=== PATIENT | female | born 1965 | race African-American/Black ===

== ENCOUNTER 2019-09-17 22:37 | Emergency (ER) | payer MEDICARE, MEDICAID ==
[~2019-09-17] VITALS: Ht 165.1 cm; Wt 126.0 kg
[2019-09-18] MEDS ORDERED: KETOROLAC 30MG/ML VIAL IV STA (00:47)
[2019-09-18] MEDS ORDERED: ONDANSETRON HCL 4MG/2ML INJ IV STA (00:47)
[2019-09-18] MEDS ORDERED: SODIUM CHLORIDE 0.9% 1,000 ML IV ONE (00:47)
[2019-09-18] MEDS ORDERED: MORPHINE SULFATE 4 MG/ML CPJ (NOT FOR IM USE) IV STA (00:47)
[2019-09-18] MEDS ORDERED: PIPERACILLIN/TAZ 3.375G PREMIX 50 ML IV ONE (01:00)
[2019-09-18] MEDS ORDERED: METRONIDAZOLE 500 MG PREMIX 100 ML IV ONE (01:00)
[2019-09-18 02:21] LABS: CHLORIDE 102 mEq/L (98-107)
[2019-09-18 02:25] LABS: ETHANOL BLOOD < 10 mg/dL; INR 0.9; PARTIAL THROMBOPLASTIN TIME 23.3 sec (23.4-31.0); PROTHROMBIN TIME 10.2 sec (9.6-11.0)
[2019-09-18 02:26] LABS: CLARITY URINE CLEAR (CLEAR); COLOR URINE YELLOW (YELLOW); KETONES URINE TRACE (NEGATIVE); LEUKOCYTE ESTERASE URINE NEGATIVE (NEGATIVE); NITRITE URINE NEGATIVE (NEGATIVE); OCCULT BLOOD URINE NEGATIVE (NEGATIVE); PROTEIN URINE NEGATIVE (NEGATIVE); SPECIFIC GRAVITY URINE 1.027 (1.005-1.030); UROBILINOGEN URINE 0.2 E.U./dL (0.2-1.0)
[2019-09-18 02:51] LABS: *BARBITURATES SCREEN URINE NEGATIVE (NEGATIVE); *BENZODIAZEPINES SCREEN URINE NEGATIVE (NEGATIVE); *COCAINE SCREEN URINE NEGATIVE (NEGATIVE)
[2019-09-18 02:52] LABS: *AMPHETAMINES SCREEN URINE NEGATIVE (NEGATIVE); CANNABINOID URINE SCREEN NEGATIVE (NEGATIVE); METHADONE URINE SCREEN NEGATIVE (NEGATIVE); OPIATES URINE SCREEN NEGATIVE (NEGATIVE); PHENCYCLIDINE URINE SCREEN NEGATIVE (NEGATIVE)
[2019-09-18 03:42] LABS: EOSINOPHILS % 1.9 % (0.0-5.0); HEMATOCRIT. 43.2 % (36.0-48.0); HEMOGLOBIN. 14.5 g/dL (12.0-16.0); LYMPHOCYTES % 28.3 % (20.0-50.0); MEAN CORPUSCULAR HEMOGLOBIN 29.3 pg (28.0-32.0); MEAN CORPUSCULAR VOLUME 87.3 fL (81.0-99.0); MEAN PLATELET VOLUME 8.5 fl (7.4-10.4); MONOCYTES % 9.6 % (2.0-8.0); NEUTROPHILS % 59.2 % (40.0-76.0); PLATELET 192 x1000/uL (130-400); RED BLOOD CELL COUNT 4.94 mill/uL (4.2-5.4); RED CELL DISTRIBUTION WIDTH 15.8 % (11.6-14.6)
[2019-09-18] MEDS ORDERED: MORPHINE SULFATE 4 MG/ML CPJ (NOT FOR IM USE) IV ONE (06:45)
[2019-09-18] MEDS ORDERED: ONDANSETRON HCL 4MG/2ML INJ IV ONE (06:45)
[2019-09-18 08:07] VITALS: BP 126/56
== END 2019-09-18 08:30 ==
LOC: ER 22:37 → EDBEDREQ 09-18 06:22 → EDBEDREQSVC 09-18 06:22 → EDBEDREQTM 09-18 06:22 → ENRESERV 09-18 08:05 → CANRESERV 09-18 08:05 → CANBEDREQ 09-18 08:17 → ER 09-18 08:30
DX: R10.32 Left lower quadrant pain (principal); R19.7 Diarrhea, unspecified; E11.9 Type 2 diabetes mellitus without complications; Z87.19 Personal history of other diseases of the digestive system
CPT/HCPCS: 36415; 71045; 74176; 80053; 80305; 80320; 81003; 83605; 83690; 83880; 84484; 85025; 85610; 85730; 87040; 87086; 96365; 96366; 96368; 96375; 96376; 99285; J1885; J2270; J2405; J2543; J3490; J7030; G0480

== ENCOUNTER 2019-12-01 17:37 | Emergency (ER) | payer OTHER, MEDICARE ==
[~2019-12-01] VITALS: Ht 167.6 cm; Wt 125.0 kg
[2019-12-01] MEDS ORDERED: MORPHINE SULFATE 4 MG/ML CPJ (NOT FOR IM USE) IV STA (18:04)
[2019-12-01] MEDS ORDERED: ONDANSETRON HCL 4MG/2ML INJ IV STA (18:04)
[2019-12-01] MEDS ORDERED: SODIUM CHLORIDE 0.9% 1,000 ML IV ONE (18:04)
[2019-12-01 18:46] LABS: CLARITY URINE CLEAR (CLEAR); COLOR URINE YELLOW (YELLOW); KETONES URINE NEGATIVE (NEGATIVE); LEUKOCYTE ESTERASE URINE NEGATIVE (NEGATIVE); NITRITE URINE NEGATIVE (NEGATIVE); OCCULT BLOOD URINE NEGATIVE (NEGATIVE); PROTEIN URINE NEGATIVE (NEGATIVE); SPECIFIC GRAVITY URINE 1.023 (1.005-1.030); UROBILINOGEN URINE 0.2 E.U./dL (0.2-1.0)
[2019-12-01 19:30] LABS: BASOPHILS % 0.9 % (0.0-2.0); EOSINOPHILS % 1.8 % (0.0-5.0); HEMATOCRIT. 43.1 % (36.0-48.0); HEMOGLOBIN. 14.4 g/dL (12.0-16.0); LYMPHOCYTES % 29.6 % (20.0-50.0); MEAN CORPUSCULAR HEMOGLOBIN 29.2 pg (28.0-32.0); MEAN CORPUSCULAR VOLUME 87.2 fL (81.0-99.0); MEAN PLATELET VOLUME 7.9 fl (7.4-10.4); MONOCYTES % 9.6 % (2.0-8.0); NEUTROPHILS % 58.1 % (40.0-76.0); PLATELET 204 x1000/uL (130-400); RED BLOOD CELL COUNT 4.94 mill/uL (4.2-5.4); RED CELL DISTRIBUTION WIDTH 15.6 % (11.6-14.6)
[2019-12-01 19:35] LABS: CHLORIDE 105 mEq/L (98-107)
[2019-12-01 19:39] LABS: INR 0.9; PROTHROMBIN TIME 10.1 sec (9.6-11.0)
[2019-12-01 21:29] VITALS: BP 130/70
== END 2019-12-01 21:30 | disposition home or self-care (01) ==
LOC: ER 17:37
DX: R10.32 Left lower quadrant pain (principal); R03.0 Elevated blood-pressure reading, without diagnosis of hypertension; E11.9 Type 2 diabetes mellitus without complications; K57.90 Diverticulosis of intestine, part unspecified, without perforation or abscess without bleeding; E03.9 Hypothyroidism, unspecified; E78.5 Hyperlipidemia, unspecified
CPT/HCPCS: 36415; 74176; 80053; 81003; 83690; 85025; 85610; 96374; 96375; 99284; J2270; J2405; J7030

== ENCOUNTER 2020-06-05 16:07 | Emergency (ER) | payer MEDICARE, MEDICAID ==
[~2020-06-05] VITALS: Ht 165.1 cm; Wt 137.0 kg
[2020-06-05 18:41] LABS: BASOPHILS % 0.7 % (0.0-2.0); EOSINOPHILS % 1.7 % (0.0-5.0); HEMATOCRIT. 42.1 % (36.0-48.0); HEMOGLOBIN. 13.6 g/dL (12.0-16.0); LYMPHOCYTES % 30.5 % (20.0-50.0); MEAN CORPUSCULAR HEMOGLOBIN 28.5 pg (28.0-32.0); MEAN CORPUSCULAR VOLUME 88.3 fL (81.0-99.0); MEAN PLATELET VOLUME 8.4 fl (7.4-10.4); MONOCYTES % 8.7 % (2.0-8.0); NEUTROPHILS % 58.4 % (40.0-76.0); PLATELET 188 x1000/uL (130-400); RED BLOOD CELL COUNT 4.77 mill/uL (4.2-5.4); RED CELL DISTRIBUTION WIDTH 14.8 % (11.6-14.6)
[2020-06-05 18:47] LABS: CHLORIDE 104 mEq/L (98-107)
[2020-06-05] MEDS ORDERED: HYDROCODONE/ACETAMINOPHEN 5/325MG TABLET PO ONE (19:00)
[2020-06-05] MEDS ORDERED: KETOROLAC 15MG/ML VIAL IV ONE (21:00)
[2020-06-05 21:05] VITALS: BP 125/78
[2020-06-05] MEDS ORDERED: IOHEXOL-300 100 ML BOTTLE ONE (21:06)
== END 2020-06-05 21:10 | disposition home or self-care (01) ==
LOC: ER 16:07
DX: R06.00 Dyspnea, unspecified (principal); M79.604 Pain in right leg; M79.605 Pain in left leg; M54.89 Other dorsalgia; I10 Essential (primary) hypertension; E11.9 Type 2 diabetes mellitus without complications; E03.9 Hypothyroidism, unspecified; E78.5 Hyperlipidemia, unspecified; Z87.19 Personal history of other diseases of the digestive system; Z79.899 Other long term (current) drug therapy
CPT/HCPCS: 36415; 71275; 80053; 83880; 84484; 85025; 93005; 93970; 96374; 99285; J1885; Q9967

== ENCOUNTER 2020-11-15 20:25 | Emergency (ER) | payer MEDICAID, OTHER ==
[~2020-11-15] VITALS: Ht 165.1 cm; Wt 128.0 kg
[2020-11-15 22:45] LABS: CLARITY URINE CLEAR (CLEAR); COLOR URINE YELLOW (YELLOW); KETONES URINE NEGATIVE (NEGATIVE); LEUKOCYTE ESTERASE URINE NEGATIVE (NEGATIVE); NITRITE URINE NEGATIVE (NEGATIVE); OCCULT BLOOD URINE NEGATIVE (NEGATIVE); PROTEIN URINE NEGATIVE (NEGATIVE); SPECIFIC GRAVITY URINE 1.018 (1.005-1.030); UROBILINOGEN URINE 0.2 E.U./dL (0.2-1.0)
[2020-11-16] MEDS ORDERED: KETOROLAC 60MG/2ML VIAL IM ONE
[2020-11-16 01:04] LABS: BASOPHILS % 0.6 % (0.0-2.0); EOSINOPHILS % 1.5 % (0.0-5.0); HEMATOCRIT. 34.6 % (36.0-48.0); HEMOGLOBIN. 11.6 g/dL (12.0-16.0); LYMPHOCYTES % 31.9 % (20.0-50.0); MEAN CORPUSCULAR HEMOGLOBIN 28.9 pg (28.0-32.0); MEAN CORPUSCULAR VOLUME 85.9 fL (81.0-99.0); MEAN PLATELET VOLUME 7.5 fl (7.4-10.4); MONOCYTES % 9.8 % (2.0-8.0); NEUTROPHILS % 56.2 % (40.0-76.0); PLATELET 203 x1000/uL (130-400); RED BLOOD CELL COUNT 4.03 mill/uL (4.2-5.4); RED CELL DISTRIBUTION WIDTH 15.2 % (11.6-14.6)
[2020-11-16 01:10] LABS: CHLORIDE 106 mEq/L (98-107)
[2020-11-16] MEDS ORDERED: IBUP-2029 MT (03:19)
[2020-11-16] MEDS ORDERED: BACL20TA MT (03:19)
[2020-11-16 03:38] VITALS: BP 145/68
== END 2020-11-16 04:56 | disposition home or self-care (01) ==
LOC: ER 20:25
DX: M54.42 Lumbago with sciatica, left side (principal); M54.41 Lumbago with sciatica, right side; R74.01 Elevation of levels of liver transaminase levels; R03.0 Elevated blood-pressure reading, without diagnosis of hypertension; E11.9 Type 2 diabetes mellitus without complications; E78.00 Pure hypercholesterolemia, unspecified; Z87.19 Personal history of other diseases of the digestive system
CPT/HCPCS: 36415; 71045; 72100; 80053; 81003; 85025; 96372; 99285; J1885

== ENCOUNTER 2021-05-14 09:01 | Emergency (ER) | payer MEDICARE, MEDICAID ==
[~2021-05-14] VITALS: Ht 165.1 cm; Wt 126.0 kg
[~2021-05-14 09:01] MED LIST: BACL20TA MT; IBUP-2029 MT
[2021-05-14] MEDS ORDERED: ACETAMINOPHEN 325MG TABLET PO ONE (09:30)
[2021-05-14 10:39] VITALS: BP 129/84
== END 2021-05-14 10:35 | disposition home or self-care (01) ==
LOC: ER 09:01
DX: S83.8X2A Sprain of other specified parts of left knee, initial encounter (principal); X58.XXXA Exposure to other specified factors, initial encounter; Y93.89 Activity, other specified; Y92.89 Other specified places as the place of occurrence of the external cause; I10 Essential (primary) hypertension; E11.9 Type 2 diabetes mellitus without complications; E78.00 Pure hypercholesterolemia, unspecified; E03.9 Hypothyroidism, unspecified; Z87.19 Personal history of other diseases of the digestive system; Z79.899 Other long term (current) drug therapy
CPT/HCPCS: 73560; 99283

== ENCOUNTER 2021-09-20 02:50 | Emergency (ER) | payer MEDICARE, MEDICAID ==
[~2021-09-20] VITALS: Ht 167.6 cm; Wt 132.0 kg
[2021-09-20 04:26] LABS: BASOPHILS % 0.6 % (0.0-2.0); EOSINOPHILS % 1.7 % (0.0-5.0); HEMATOCRIT. 34.1 % (36.0-48.0); HEMOGLOBIN. 11.2 g/dL (12.0-16.0); LYMPHOCYTES % 25.2 % (20.0-50.0); MEAN CORPUSCULAR HEMOGLOBIN 29.1 pg (28.0-32.0); MEAN CORPUSCULAR VOLUME 88.5 fL (81.0-99.0); MEAN PLATELET VOLUME 7.6 fl (7.4-10.4); MONOCYTES % 9.2 % (2.0-8.0); NEUTROPHILS % 63.3 % (40.0-76.0); PLATELET 204 x1000/uL (130-400); RED BLOOD CELL COUNT 3.85 mill/uL (4.2-5.4)
[2021-09-20 04:36] LABS: CHLORIDE 106 mEq/L (98-107)
[2021-09-20] MEDS ORDERED: TOPUD PO (05:54)
[2021-09-20 06:14] VITALS: BP 112/52
== END 2021-09-20 06:15 | disposition home or self-care (01) ==
LOC: ER 02:50
DX: M17.12 Unilateral primary osteoarthritis, left knee (principal); M71.22 Synovial cyst of popliteal space [Baker], left knee; I10 Essential (primary) hypertension; E11.9 Type 2 diabetes mellitus without complications; D64.9 Anemia, unspecified; E03.9 Hypothyroidism, unspecified
CPT/HCPCS: 36415; 73562; 80053; 82962; 85025; 93971; 99285

== ENCOUNTER 2022-03-20 11:21 | Emergency (ER) | payer OTHER, MEDICAID ==
[~2022-03-20] VITALS: Ht 167.6 cm; Wt 89.0 kg
[~2022-03-20 11:21] MED LIST changes: +TOPUD PO
[2022-03-20] MEDS ORDERED: METOCLOPRAMIDE HCL 10MG/2ML VIAL IV STA (13:27)
[2022-03-20] MEDS ORDERED: FAMOTIDINE 20MG/2ML VIAL IV STA (13:27)
[2022-03-20] MEDS ORDERED: MAGNESIUM/ALUMINUM HYDROXIDE/SIMETHICONE 30ML UDC PO STA (13:27)
[2022-03-20] MEDS ORDERED: KETOROLAC 15MG/ML VIAL IV ONE (13:30)
[2022-03-20] MEDS ORDERED: SODIUM CHLORIDE 0.9% 1,000 ML IV ONE (13:30)
[2022-03-20 14:26] LABS: BASOPHILS % 0.5 % (0.0-2.0); EOSINOPHILS % 0.9 % (0.0-5.0); HEMATOCRIT. 40.5 % (36.0-48.0); HEMOGLOBIN. 12.7 g/dL (12.0-16.0); LYMPHOCYTES % 19.7 % (20.0-50.0); MEAN CORPUSCULAR HEMOGLOBIN 27.7 pg (28.0-32.0); MEAN CORPUSCULAR VOLUME 88.4 fL (81.0-99.0); MEAN PLATELET VOLUME 8.4 fl (7.4-10.4); MONOCYTES % 8.8 % (2.0-8.0); NEUTROPHILS % 70.1 % (40.0-76.0); PLATELET 218 x1000/uL (130-400); RED BLOOD CELL COUNT 4.58 mill/uL (4.2-5.4); RED CELL DISTRIBUTION WIDTH 18.3 % (11.6-14.6)
[2022-03-20 14:28] LABS: CHLORIDE 107 mEq/L (98-107)
[2022-03-20 14:32] VITALS: BP 113/82
[2022-03-20 14:40] LABS: CLARITY URINE CLEAR (CLEAR); COLOR URINE YELLOW (YELLOW); KETONES URINE TRACE (NEGATIVE); LEUKOCYTE ESTERASE URINE NEGATIVE (NEGATIVE); NITRITE URINE NEGATIVE (NEGATIVE); OCCULT BLOOD URINE NEGATIVE (NEGATIVE); PH URINE 6.5 (4.5-8.0); PROTEIN URINE NEGATIVE (NEGATIVE); SPECIFIC GRAVITY URINE 1.022 (1.005-1.030)
[2022-03-20] MEDS ORDERED: METR-167 MT (16:44)
[2022-03-20] MEDS ORDERED: CIPR500T5 MT (16:44)
[2022-03-20] MEDS ORDERED: NAP5EC MT (16:44)
== END 2022-03-20 17:32 | disposition home or self-care (01) ==
LOC: ER 11:21
DX: K57.32 Diverticulitis of large intestine without perforation or abscess without bleeding (principal); I10 Essential (primary) hypertension; E11.9 Type 2 diabetes mellitus without complications; Z98.84 Bariatric surgery status; Z79.899 Other long term (current) drug therapy
CPT/HCPCS: 36415; 74176; 80053; 81003; 83690; 85025; 96361; 96374; 96375; 99284; J1885; J2765; J3490; J7030

== ENCOUNTER 2022-07-03 10:58 | Emergency (ER) | payer OTHER, MEDICAID ==
[~2022-07-03] VITALS: Ht 165.1 cm; Wt 96.0 kg
[~2022-07-03 10:58] MED LIST changes: +CIPR500T5 MT; +METR-167 MT; +NAP5EC MT
[2022-07-03] MEDS ORDERED: LIDOCAINE 5% PATCH TOP SCH (14:15)
[2022-07-03] MEDS ORDERED: IBUPROFEN 600MG TABLET PO ONE (14:15)
[2022-07-03 14:36] LABS: BASOPHILS % 0.8 % (0.0-2.0); EOSINOPHILS % 1.2 % (0.0-5.0); HEMATOCRIT. 40.9 % (36.0-48.0); HEMOGLOBIN. 13.2 g/dL (12.0-16.0); LYMPHOCYTES % 28.7 % (20.0-50.0); MEAN CORPUSCULAR HEMOGLOBIN 28.5 pg (28.0-32.0); MEAN CORPUSCULAR VOLUME 88.2 fL (81.0-99.0); MEAN PLATELET VOLUME 7.5 fl (7.4-10.4); MONOCYTES % 8.1 % (2.0-8.0); NEUTROPHILS % 61.2 % (40.0-76.0); PLATELET 225 x1000/uL (130-400); RED BLOOD CELL COUNT 4.64 mill/uL (4.2-5.4); RED CELL DISTRIBUTION WIDTH 15.4 % (11.6-14.6)
[2022-07-03 14:47] LABS: CHLORIDE 106 mEq/L (98-107)
[2022-07-03 21:50] VITALS: BP 118/77
== END 2022-07-04 01:51 | disposition short-term general hospital (02) ==
LOC: ER 10:58 → CANBEDREQ 07-05 09:28
DX: R07.2 Precordial pain (principal); R06.02 Shortness of breath; I45.10 Unspecified right bundle-branch block; I10 Essential (primary) hypertension; Z20.822 Contact with and (suspected) exposure to COVID-19
CPT/HCPCS: 36415; 71045; 80053; 82962; 83880; 84484; 85025; 85379; 87426; 93005; 99285; C9803

== ENCOUNTER 2023-03-16 20:11 | Emergency (ER) | payer OTHER, MEDICAID ==
[~2023-03-16] VITALS: Ht 162.6 cm; Wt 88.2 kg
[2023-03-16 21:02] VITALS: BP 106/74; PULSE 93; RESP 16; TEMP 98; O2SAT 98
[2023-03-16] MEDS ORDERED: HYDR453.3 TP (22:18)
[2023-03-16] MEDS ORDERED: MUPI22OI2 TP (22:18)
== END 2023-03-16 22:48 | disposition home or self-care (01) ==
LOC: ER 20:11
DX: S40.862A Insect bite (nonvenomous) of left upper arm, initial encounter (principal); E11.9 Type 2 diabetes mellitus without complications; E78.00 Pure hypercholesterolemia, unspecified; I10 Essential (primary) hypertension; Z98.890 Other specified postprocedural states; W57.XXXA Bitten or stung by nonvenomous insect and other nonvenomous arthropods, initial encounter; Y93.89 Activity, other specified; Y92.89 Other specified places as the place of occurrence of the external cause; Y99.8 Other external cause status
CPT/HCPCS: 99282

== ENCOUNTER 2023-07-21 19:51 | Emergency (ER) | payer OTHER, MEDICAID ==
[~2023-07-21] VITALS: Ht 162.6 cm; Wt 91.0 kg
[~2023-07-21 19:51] MED LIST changes: +HYDR453.3 TP; +MUPI22OI2 TP
[2023-07-21 20:31] VITALS: TEMP 98.4; O2SAT 99
[2023-07-21] MEDS ORDERED: KETOROLAC 15MG/ML VIAL IM ONE (20:45)
[2023-07-21] MEDS ORDERED: LIDO700A15 TP (21:28)
[2023-07-21] MEDS ORDERED: NAPR-1176 MT (21:28)
[2023-07-21] MEDS ORDERED: CYCL5TAB MT (21:28)
[2023-07-21 21:46] VITALS: BP 148/100; PULSE 68; RESP 16
== END 2023-07-21 21:48 | disposition home or self-care (01) ==
LOC: ER 19:51
DX: M54.50 Low back pain, unspecified (principal); E11.9 Type 2 diabetes mellitus without complications; E78.00 Pure hypercholesterolemia, unspecified; I10 Essential (primary) hypertension; Z98.890 Other specified postprocedural states; E03.9 Hypothyroidism, unspecified; Z79.899 Other long term (current) drug therapy
CPT/HCPCS: 99283; 96372; J1885

== ENCOUNTER 2023-09-18 13:55 | Emergency (ER) | payer OTHER, MEDICAID ==
[~2023-09-18] VITALS: Ht 162.6 cm; Wt 91.0 kg
[~2023-09-18 13:55] MED LIST changes: +CYCL5TAB MT; +LIDO700A15 TP; +NAPR-1176 MT
[2023-09-18 14:04] VITALS: O2SAT 95
[2023-09-18 15:46] VITALS: TEMP 97.9
[2023-09-18] MEDS: ACETAMINOPHEN 325MG TABLET PO ONE (15:46)
[2023-09-18] MEDS ORDERED: TOPUD MT (16:36)
[2023-09-18 17:09] VITALS: BP 132/81; PULSE 87; RESP 15
[2023-09-18] MEDS: KETOROLAC 30MG/ML VIAL IM ONE (17:09)
== END 2023-09-18 17:10 | disposition home or self-care (01) ==
LOC: ER 13:55
DX: S09.90XA Unspecified injury of head, initial encounter (principal); M54.2 Cervicalgia; I10 Essential (primary) hypertension; E78.00 Pure hypercholesterolemia, unspecified; E11.9 Type 2 diabetes mellitus without complications; Z79.899 Other long term (current) drug therapy; Z86.39 Personal history of other endocrine, nutritional and metabolic disease; W01.0XXA Fall on same level from slipping, tripping and stumbling without subsequent striking against object, initial encounter; Y93.89 Activity, other specified; Y92.89 Other specified places as the place of occurrence of the external cause; Y99.8 Other external cause status
CPT/HCPCS: 99285; 70450; 81025; 72125; 96372; J1885

== ENCOUNTER 2024-03-24 15:53 | Emergency (ER) | payer MEDICARE, MEDICAID ==
[~2024-03-24] VITALS: Ht 162.6 cm; Wt 75.0 kg
[~2024-03-24 15:53] MED LIST changes: +TOPUD MT
[2024-03-24 16:29] VITALS: O2SAT 99
[2024-03-24 18:04] LABS: EOSINOPHILS % 2.6 % (0.0-5.0); HEMATOCRIT. 39.2 % (36.0-48.0); HEMOGLOBIN. 12.4 g/dL (12.0-16.0); LYMPHOCYTES % 41.8 % (20.0-50.0); MEAN CORPUSCULAR HEMOGLOBIN 29.8 pg (28.0-32.0); MEAN CORPUSCULAR HGB CONC 31.6 g/dL (31.0-37.0); MEAN CORPUSCULAR VOLUME 94.2 fL (81.0-99.0); MEAN PLATELET VOLUME 7.9 fl (7.4-10.4); MONOCYTES % 10.6 % (2.0-8.0); PLATELET 245 x1000/uL (130-400); RED BLOOD CELL COUNT 4.16 mill/uL (4.2-5.4); RED CELL DISTRIBUTION WIDTH 16.9 % (11.6-14.6); WHITE BLOOD COUNT 2.9 x1000/uL (4.5-11.0)
[2024-03-24 18:08] LABS: CHLORIDE 109 mEq/L (98-107); POTASSIUM 4.1 mEq/L (3.5-5.1); SODIUM 144 mEq/L (136-145)
[2024-03-24 18:10] LABS: CALCIUM 9.4 mg/dL (8.7-10.4); CARBON DIOXIDE 27 mEq/L (21-32)
[2024-03-24 18:14] LABS: CREATININE 0.8 mg/dL (0.6-1.0)
[2024-03-24 18:15] LABS: GLUCOSE 88 mg/dL (70-105); UREA NITROGEN BLOOD 5 mg/dL (9-23)
[2024-03-24 18:17] LABS: ALANINE AMINOTRANSFERASE 15 IU/L (10-49); ALBUMIN 3.8 g/dL (3.2-4.8); ASPARTATE AMINOTRANSFERASE 22 IU/L (<34); BILIRUBIN TOTAL 0.3 mg/dL (0.1-1.0); PROTEIN TOTAL 6.1 g/dL (6.0-8.3)
[2024-03-24 18:19] LABS: BILIRUBIN DIRECT < 0.1 mg/dL (<=3.0)
[2024-03-24] MEDS: KETOROLAC 15MG/ML VIAL IM ONE (18:43)
[2024-03-25 00:05] LABS: CLARITY URINE CLOUDY (CLEAR); COLOR URINE YELLOW (YELLOW); GLUCOSE URINE NEGATIVE (NEGATIVE); KETONES URINE TRACE (NEGATIVE); LEUKOCYTE ESTERASE URINE 1+ (NEGATIVE); NITRITE URINE NEGATIVE (NEGATIVE); OCCULT BLOOD URINE NEGATIVE (NEGATIVE); PH URINE 5.5 (4.5-8.0); PROTEIN URINE NEGATIVE (NEGATIVE); SPECIFIC GRAVITY URINE 1.021 (1.005-1.030)
[2024-03-25] MEDS ORDERED: CEPH250C2 MT (00:26)
[2024-03-25 00:39] LABS: RBC URINE 0-2 /hpf (0-2)
[2024-03-25 00:40] LABS: BACTERIA URINE TRACE; SQUAMOUS EPITHELIAL CELL URINE 1+ /lpf (RARE/1+)
[2024-03-25 01:36] VITALS: BP 144/80; PULSE 81; RESP 18; TEMP 36.72516; O2SAT 100
== END 2024-03-25 01:40 | disposition home or self-care (01) ==
LOC: ER 15:53
DX: R10.9 Unspecified abdominal pain (principal); N39.0 Urinary tract infection, site not specified; I10 Essential (primary) hypertension; Z98.890 Other specified postprocedural states; Z79.899 Other long term (current) drug therapy
CPT/HCPCS: 99285; 74176; 80076; 80048; 81003; 82962; 85025; 86850; 86900; 86901; 36415; 96372; J1885

== ENCOUNTER 2024-11-18 15:46 | Emergency (ER) | payer MEDICARE, MEDICAID ==
[~2024-11-18] VITALS: Ht 167.6 cm; Wt 91.0 kg
[~2024-11-18 15:46] MED LIST changes: +CEPH250C2 MT; +CIPR-452 MT; -CIPR500T5 MT; -CYCL5TAB MT; +CYCL5TAB3 MT; +LIDO-53 TP; -LIDO700A15 TP; -NAP5EC MT; +NAPR-1495 MT
[2024-11-18 15:55] VITALS: O2SAT 99
[2024-11-18 16:25] VITALS: BP 128/87; PULSE 82; RESP 16; TEMP 36.8; O2SAT 97
[2024-11-18] MEDS: IBUPROFEN 600MG TABLET PO ONE (17:43)
[2024-11-18 18:05] LABS: CLARITY URINE CLOUDY (CLEAR); COLOR URINE YELLOW (YELLOW); GLUCOSE URINE NEGATIVE (NEGATIVE); KETONES URINE NEGATIVE (NEGATIVE); LEUKOCYTE ESTERASE URINE TRACE (NEGATIVE); NITRITE URINE NEGATIVE (NEGATIVE); OCCULT BLOOD URINE NEGATIVE (NEGATIVE); PROTEIN URINE NEGATIVE (NEGATIVE); SPECIFIC GRAVITY URINE 1.011 (1.005-1.030)
[2024-11-18 18:32] LABS: BACTERIA URINE NONE SEEN; RBC URINE 0-2 /hpf (0-2); SQUAMOUS EPITHELIAL CELL URINE FEW /lpf (RARE/1+); WBC URINE 0-2 /hpf (0-2)
[2024-11-18] MEDS ORDERED: IBUP-2029 MT (18:55)
== END 2024-11-18 19:19 | disposition home or self-care (01) ==
LOC: ER 15:46
DX: M54.50 Low back pain, unspecified (principal); I10 Essential (primary) hypertension; Z79.899 Other long term (current) drug therapy; Z98.890 Other specified postprocedural states; Z87.440 Personal history of urinary (tract) infections
CPT/HCPCS: 81003; 99283

== ENCOUNTER 2025-02-17 15:20 | Emergency (ER) | payer MEDICARE, MEDICAID ==
[~2025-02-17] VITALS: Ht 162.6 cm; Wt 80.0 kg
[2025-02-17 15:29] VITALS: O2SAT 98
[2025-02-17] MEDS: PREDNISONE 20MG TABLET PO ONE (16:42)
[2025-02-17] MEDS: CYCLOBENZAPRINE 10MG TABLET PO ONE (16:42)
[2025-02-17] MEDS: LIDOCAINE 5% PATCH TOP STA (16:44)
[2025-02-17] MEDS: KETOROLAC 15MG/ML VIAL IM ONE (16:44)
[2025-02-17] MEDS ORDERED: LIDO700A30 TP (17:18)
[2025-02-17] MEDS ORDERED: CYCL10TA21 MT (17:18)
[2025-02-17] MEDS ORDERED: KETO10TA2 MT (17:18)
[2025-02-17] MEDS ORDERED: TC1U15 TP (17:20)
[2025-02-17 17:36] VITALS: BP 160/94; PULSE 69; RESP 16; TEMP 37.1; O2SAT 99
== END 2025-02-17 17:37 | disposition home or self-care (01) ==
LOC: ER 15:20
DX: M54.50 Low back pain, unspecified (principal); M79.662 Pain in left lower leg; L30.9 Dermatitis, unspecified; R51.9 Headache, unspecified; I10 Essential (primary) hypertension; E03.9 Hypothyroidism, unspecified; Z98.890 Other specified postprocedural states
CPT/HCPCS: 99284; 96372; J1885; J7512

== ENCOUNTER 2025-06-29 14:17 | Emergency (ER) | payer MEDICARE, OTHER ==
[~2025-06-29] VITALS: Ht 162.6 cm; Wt 76.0 kg
[~2025-06-29 14:17] MED LIST changes: +ATOR20TA65 MT; -CEPH250C2 MT; -CIPR-452 MT; +CYCL10TA21 MT; -CYCL5TAB3 MT; +FOLI-43 MT; +IBUP-1455 MT; -IBUP-2029 MT; +LEVO137C5 PO; -LIDO-53 TP; +LOSA50TA41 MT; -METR-167 MT; -NAPR-1176 MT; -NAPR-1495 MT; +PIOG30TA70 PO; +TC1U15 TP; -TOPUD MT; -TOPUD PO
[2025-06-29 14:28] VITALS: O2SAT 100
[2025-06-29 14:35] VITALS: BP 122/77; PULSE 99; RESP 18; TEMP 36.7; O2SAT 99
== END 2025-06-29 15:04 | disposition home or self-care (01) ==
LOC: ER 14:17
DX: S01.81XD Laceration without foreign body of other part of head, subsequent encounter (principal); E11.9 Type 2 diabetes mellitus without complications; E78.00 Pure hypercholesterolemia, unspecified; I10 Essential (primary) hypertension; Z79.899 Other long term (current) drug therapy; X58.XXXD Exposure to other specified factors, subsequent encounter
CPT/HCPCS: 99282